=== PATIENT | female | born 1980 | race Hispanic/Latino ===

== ENCOUNTER 2018-12-24 09:28 | Outpatient (CLI) | payer OTHER ==
--- NOTE | 2018-12-24 11:33 | ULT ---
OB ULTRASOUND: Date: 12/24/18 HISTORY: Anatomy and cervix evaluation. FINDINGS: Single viable intrauterine . Gestational age by ultrasound at 21 weeks/0 days. BPD: 20 weeks/2 days HC: 20 weeks/5 days AC: 21 weeks/5 days FL: 21 weeks/2 days EFW: 413 gm, 21 weeks/3 days heart rate: 132 bpm. Placenta: Posterior. Presentation: Breech. Amniotic fluid: Adequate. ANDREEA recorded at 9.9 cm. Cervical length: 5.1 cm. anatomy evaluated, including intracranial contents, 4 chamber heart, stomach, kidneys, cord ins ertion, bladder, spine, lips/nose, extremities, and 3 vessel cord. No abnormality identified. IMPRESSION: 21 weeks/0 days gestation by ultrasound. No abnormality identified. POS: [facility]
== END 2018-12-24 09:29 | disposition home or self-care (01) ==
LOC: BICULT 09:28
PROVIDERS: ATTEND Family Medicine
DX: O09.522 Supervision of elderly multigravida, second trimester (principal); Z3A.21 21 weeks gestation of pregnancy
CPT/HCPCS: 76805

== ENCOUNTER 2019-04-27 05:30 | Inpatient (IN) | payer MEDICAID, OTHER, SELFPAY ==
[2019-04-27] MEDS ORDERED: Lidocaine 1% (PF) 30 ML VIAL ONE (08:03)
[2019-04-27] MEDS ORDERED: NS w/ Oxytocin 10 units 500 ML ONE (08:03)
[2019-04-27] MEDS ORDERED: hydrALAZINE 20 MG/ML VIAL SLOW IVP PRN ×2 (08:30→14:03)
[2019-04-27] MEDS ORDERED: Ibuprofen 800 MG TAB PO PRN (08:30)
[2019-04-27] MEDS ORDERED: Methylergonovine 0.2 MG/ML VIAL IM PRN (08:30)
[2019-04-27] MEDS ORDERED: NS w/ Oxytocin 10 units 500 ML IV SCH ×2 (08:30)
[2019-04-27] MEDS ORDERED: Lactated Ringer's 1,000 ML IV SCH ×2 (08:30→09:30)
[2019-04-27] MEDS ORDERED: Misoprostol 200 MCG TAB PR PRN (08:30)
[2019-04-27] MEDS ORDERED: Ondansetron PF 4 MG/2 ML Vial IVP PRN ×2 (08:30→14:03)
[2019-04-27] MEDS ORDERED: Carboprost 250 MCG/ML AMP IM PRN (08:30)
[2019-04-27] MEDS ORDERED: Lidocaine 1% (PF) 30 ML VIAL SC PRN (08:30)
[2019-04-27] MEDS ORDERED: Diphenoxylate HCl/Atropine Tablet PO PRN (08:30)
[2019-04-27] MEDS ORDERED: HYDROcodone/Acetaminophen 5/325 mg Tablet PO PRN ×3 (08:30→14:03)
[2019-04-27] MEDS ORDERED: Promethazine HCl 25 MG/ML VIAL IM PRN (08:30)
[2019-04-27] MEDS ORDERED: Butorphanol Tartrate 1 MG/ML VIAL SLOW IVP PRN (08:30)
[2019-04-27 08:41] VITALS: BMI 28.5
[2019-04-27 08:59] LABS: Mean Corpuscular HGB CONC 33.8 g/dL (32.0-36.0); Mean Corpuscular Hemoglobin 26.8 pg (27.0-31.0); Mean Corpuscular Volume 79.3 fL (78.0-98.0); Mean Platelet Volume 9.6 fL (7.4-10.4); Platelet Count 204 thou/uL (130-400); RBC Distribution Width 14.5 % (11.5-14.5); Red Blood Cell (RBC) Count 4.12 mill/uL (4.20-5.40); White Blood Cell (WBC) Count 9.7 thou/uL (4.8-10.8)
[2019-04-27] MEDS ORDERED: Dextrose 5%-Lactated Ringers 1,000 ML IV SCH (09:30)
[2019-04-27 09:41] LABS: Syphilis Antibody Nonreactive (Nonreactive); Syphilis Antibody Index 0.03 S/CO (<1.00 Non-Reactive)
[2019-04-27 09:42] LABS: HBSAg Index 0.15 S/CO (0-0.99); Hep B Surf Ag Non-Reactive S/CO (NonReactive)
[2019-04-27] MEDS ORDERED: Misoprostol 200 MCG TAB ONE (10:14)
[2019-04-27] MEDS: NS / Oxytocin 40 units/1000ml 1,000 ML IV PRN ×2 (11:55→12:56)
[2019-04-27] MEDS ORDERED: Bisacodyl 10 MG SUPP PR PRN (14:03)
[2019-04-27] MEDS ORDERED: Preparation H Ointment 28 GM TUBE PR PRN (14:03)
[2019-04-27] MEDS ORDERED: diphenhydrAMINE 25 MG CAP PO PRN (14:03)
[2019-04-27] MEDS ORDERED: Lanolin Ointment 7 GM TUBE TOP PRN (14:03)
[2019-04-27] MEDS ORDERED: NS / Oxytocin 40 units/1000ml 1,000 ML IV SCH (14:03)
[2019-04-27] MEDS ORDERED: Benzocaine-Menthol 82.5 ML CAN TOP PRN (14:03)
[2019-04-27] MEDS ORDERED: Milk Of Magnesia 30 ML UDCUP PO PRN (14:03)
[2019-04-27] MEDS ORDERED: Adacel (T-DAP) 0.5 ML SYRINGE IM ONE (14:03)
[2019-04-27] MEDS: Ferrous Sulfate 325 MG TAB PO SCH (17:26)
[2019-04-27] MEDS: Ibuprofen 800 MG TAB PO SCH ×2 (17:26→21:34)
[2019-04-27] MEDS: Docusate Calcium (SURFAK) 240 MG CAP PO SCH (21:33)
[2019-04-28] MEDS: Ibuprofen 800 MG TAB PO SCH ×2 (05:36→13:54)
[2019-04-28] MEDS: Ferrous Sulfate 325 MG TAB PO SCH (08:55)
[2019-04-28] MEDS: Docusate Calcium (SURFAK) 240 MG CAP PO SCH (08:55)
[2019-04-28] MEDS ORDERED: Prenatal Vitamin 1 TAB PO SCH (09:00)
[2019-04-28 11:57] VITALS: BP 106/60; TEMP 97.6
== END 2019-04-28 15:30 | disposition home or self-care (01) | DRG 807 ==
LOC: L&D 07:44 → 3SW 17:07
PROVIDERS: ADMIT Family Medicine; ATTEND Family Medicine
PROC: 10E0XZZ Delivery of Products of Conception, External Approach (ICD-10-PCS; principal; 2019-04-27)
PROC: 10907ZC Drainage of Amniotic Fluid, Therapeutic from Products of Conception, Via Natural or Artificial Opening (ICD-10-PCS; 2019-04-27)
PROC: 3E033VJ Introduction of Other Hormone into Peripheral Vein, Percutaneous Approach (ICD-10-PCS; 2019-04-27)
DX: O80 Encounter for full-term uncomplicated delivery (principal); Z37.0 Single live birth; Z3A.39 39 weeks gestation of pregnancy
CPT/HCPCS: 36415; 85027; 86780; 86850; 86900; 86901; 87340; J2001; J2590